=== PATIENT | male | born 1990 | race Caucasian/White ===

== ENCOUNTER 2017-09-24 21:39 | Emergency (ER) | payer MEDICAID ==
[2017-09-24 21:40] VITALS: BMI 38.0
[2017-09-24 22:00] VITALS: RESP 18
--- NOTE | 2017-09-24 22:06 | ED PDOC ---
Arrival/HPI - General Chief Complaint: Male Genitourinary Time Seen by Provider: 09/24/17 21:41 Historian: Patient - History of Present Illness Narrative History of Present Illness (Text): 09/24/17 22:04 27yo male with PMhx of hypertension who present with complaint of left sided testicular pain. Notes that pain started 3daysa go, while lifting a heavy object. sates pain has been intermittent. He felt the last pain this morning, but decoded to come to ED for evaluation this evening. He denies penile discharge, swelling, redness, urinary symptoms, any other complaint. Past Medical History - Provider Review Nursing Documentation Reviewed: Yes - Infectious Disease Hx of Infectious Diseases: None - Cardiac Hx Cardiac Disorders: Yes Hx Hypertension: Yes - Pulmonary Hx Respiratory Disorders: No - Neurological Hx Neurological Disorder: Yes Hx Migraine: Yes - HEENT Hx HEENT Disorder: No - Renal Hx Renal Disorder: No - Endocrine/Metabolic Hx Endocrine Disorders: No - Hematological/Oncological Hx Blood Disorders: No - Integumentary Hx Dermatological Disorder: No - Musculoskeletal/Rheumatological Hx Musculoskeletal Disorders: No - Gastrointestinal Hx Gastrointestinal Disorders: No - Genitourinary/Gynecological Hx Genitourinary Disorders: No - Psychiatric Hx Psychophysiologic Disorder: No Hx Substance Use: No - Anesthesia Hx Anesthesia: No Family/Social History - Physician Review Nursing Documentation Reviewed: Yes Family/Social History: Unknown Family HX Smoking Status: Never Smoked Hx Alcohol Use: No Hx Substance Use: No Allergies/Home Meds Allergies/Adverse Reactions: Allergies No Known Allergies Allergy (Verified 09/24/17 22:01) Home Medications: Home Meds Medication Instructions Recorded Confirmed No Known Home Med 09/24/17 09/24/17 Review of Systems - Physician Review All systems were reviewed & negative as marked: Yes - Review of Systems Constitutional: Normal Eyes: Normal ENT: Normal Respiratory: Normal Cardiovascular: Normal Gastrointestinal: Normal Genitourinary Male: Other (Testicular pain) Musculoskeletal: Normal Skin: Normal Neurological: Normal Endocrine: Normal Hemo/Lymphatic: Normal Psychiatric: Normal Physical Exam Vital Signs Reviewed: Yes Vital Signs Temp Pulse Resp BP Pulse Ox 09/24/17 21:58 97.7 F 73 18 168/92 H 100 Temperature: Afebrile Blood Pressure: Normal Pulse: Regular Respiratory Rate: Normal Appearance: Positive for: Well-Appearing, Non-Toxic, Comfortable Pain Distress: None Mental Status: Positive for: Alert and Oriented X 3 - Systems Exam Head: Present: Atraumatic, Normocephalic Pupils: Present: PERRL Extroacular Muscles: Present: EOMI Conjunctiva: Present: Normal Mouth: Present: Moist Mucous Membranes Neck: Present: Normal Range of Motion Respiratory/Chest: Present: Clear to Auscultation, Good Air Exchange. No: Respiratory Distress, Accessory Muscle Use Cardiovascular: Present: Regular Rate and Rhythm, Normal S1, S2. No: Murmurs Abdomen: No: Tenderness, Distention, Peritoneal Signs Genitourinary Male: No: Testicle Tenderness, Testicle Swelling Back: Present: Normal Inspection Upper Extremity: Present: Normal Inspection. No: Cyanosis, Edema Lower Extremity: Present: Normal Inspection. No: Edema Neurological: Present: GCS=15, CN II-XII Intact, Speech Normal Skin: Present: Warm, Dry, Normal Color. No: Rashes Psychiatric: Present: Alert, Oriented x 3, Normal Insight, Normal Concentration Medical Decision Making ED Course and Treatment: 09/24/17 23:43 Pt in ED for stated history. His PE was benign with JAY Cedillo as the sample checker. Testicular US 05 IMPRESSION: No torsion; testicular microlithiasis; bilateral varicoceles left larger than right UA Negative 09/25/17 00:01 Result was DW the pt and he was referred to a urologist. - Lab Interpretations Lab Results: Lab Results 09/24/17 23:25: Urine Color Yellow, Urine Appearance Clear, Urine pH 6.0, Ur Specific Sadler >= 1.030, Urine Protein 30 H, Urine Glucose (UA) Negative, Urine Ketones Trace H, Urine Blood Negative, Urine Nitrate Negative, Urine Bilirubin Negative, Urine Urobilinogen 0.2, Ur Leukocyte Esterase Negative, Urine RBC 0 - 2, Urine WBC 0 - 2, Ur Epithelial Cells 0 - 2 - RAD Interpretation Radiology Orders: 09/24/17 22:03 TESTES DUPLEX COMPLETE [US] Stat Disposition/Present on Arrival - Present on Arrival Any Indicators Present on Arrival: No History of DVT/PE: No History of Uncontrolled Diabetes: No Urinary Catheter: No History of Decub. Ulcer: No History Surgical Site Infection Following: None - Disposition Have Diagnosis and Disposition been Completed?: Yes Diagnosis: Varicocele, Testicular pain Disposition: HOME/ ROUTINE Disposition Time: 00:05 Patient Plan: Discharge Patient Problems: Current Active Problems Problem Status Onset Testicular pain Acute Varicocele Acute Condition: STABLE Discharge Instructions (ExitCare): Varicocele Additional Instructions: Follow up with your Doctor/Urologist Return to ED for any new or worsening symptoms Referrals: Felicia Islas Resarah, [Non-Staff] - Follow up with primary Audrey Jones MD [Staff Provider] - Follow up with primary Forms: [employer] ([place])
--- NOTE | 2017-09-24 23:38 | US ---
EXAM: US Scrotum EXAM DATE/TIME: 09/24/2017 10:03 PM CLINICAL HISTORY: 27 years old, male; Pain; Scrotum pain; Additional info: Right testicular pain TECHNIQUE: Real-time ultrasound of the scrotum with color Doppler and image documentation. COMPARISON: There are no prior studies for comparison. FINDINGS: Right: Right testicle measures approximately 4.3 x 1.7 x 2.7 cm. Echotexture is uniform. There are no testicular masses. There are small echogenic foci in the substance of the testicle. There is expected intratesticular blood flow. Right epididymal head measures approximately 8 x 12 mm. There is no hydrocele. There is no skin thickening. There is a varicocele Left: Left testicle measures approximately 3.9 x 1.4 x 2.8 cm. Echotexture is uniform. There are no testicular masses. There are a few small echogenic foci in the left testicle There is expected intratesticular blood flow. Left epididymal head measures approximately 11 x 13 mm. There is no skin thickening. There is no hydrocele. There is a left varicocele. IMPRESSION: No torsion; testicular microlithiasis; bilateral varicoceles left larger than right
[2017-09-24 23:41] LABS: URINE BILIRUBIN NEGATIVE (NEGATIVE); URINE BLOOD NEGATIVE (NEGATIVE); URINE GLUCOSE (UA) NEGATIVE (NEGATIVE); URINE LEUKOCYTE ESTERASE NEGATIVE Leu/uL (NEGATIVE); URINE PROTEIN 30 mg/dL (<30 mg/dL); URINE UROBILINOGEN 0.2 E.U./dL (<1 E.U./dL)
[2017-09-24 23:45] LABS: URINE APPEARANCE CLEAR (CLEAR); URINE COLOR YELLOW (YELLOW)
[2017-09-25 00:06] LABS: URINE EPITHELIAL CELLS 0 - 2 /hpf (0-5); URINE RBC 0 - 2 /hpf (0-2); URINE WBC 0 - 2 /hpf (0-6)
[2017-09-25 00:45] VITALS: BP 138/76; PULSE 86; O2SAT 98
[2017-09-25 00:46] VITALS: TEMP 98.7
== END 2017-09-25 00:15 | disposition home or self-care (01) ==
LOC: ED 21:39
DX: I86.1 Scrotal varices (principal); N50.812 Left testicular pain